=== PATIENT | male | born 1980 | race Two or more races ===

== ENCOUNTER 2016-09-04 20:47 | Emergency (ER) | payer OTHER ==
[~2016-09-04] VITALS: Ht 175.3 cm; Wt 86.2 kg
[~2016-09-04 20:47] MED LIST: IBUPROFEN600 MG ORAL; NKM; TRAMADOL HCL50 MG ORAL
[2016-09-04 21:16] VITALS: BP 126/80
[2016-09-04] MEDS ORDERED: Cyclobenzaprine 10mg Tab ORAL ONE (21:30)
[2016-09-04] MEDS ORDERED: Ketorolac 30mg Inj IM ONE (21:30)
[2016-09-04] MEDS ORDERED: IBUPROFEN600 MG ORAL (21:40)
[2016-09-04] MEDS ORDERED: CYCLOBENZAPRINE10 MG ORAL (21:40)
[2016-09-04 21:52] VITALS: BP 126/80
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
== END 2016-09-04 21:52 | disposition home or self-care (01) ==
LOC: EMR 21:40
DX: S16.1XXA Strain of muscle, fascia and tendon at neck level, initial encounter (principal); V43.52XA Car driver injured in collision with other type car in traffic accident, initial encounter; Y92.410 Unspecified street and highway as the place of occurrence of the external cause
CPT/HCPCS: 96372; 99284; J1885

== ENCOUNTER 2016-09-09 14:27 | Emergency (ER) | payer SELFPAY ==
[~2016-09-09] VITALS: Ht 175.3 cm; Wt 79.4 kg
[~2016-09-09 14:27] MED LIST changes: +CYCLOBENZAPRINE10 MG ORAL
[2016-09-09 15:09] VITALS: BP 132/77
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
[2016-09-09] MEDS ORDERED: IBUPROFEN600 MG ORAL (16:52)
[2016-09-09] MEDS ORDERED: NORCO 5-325 TA1 EACH ORAL (16:52)
--- NOTE | 2016-09-09 16:58 | Diagnostic Imaging Report ---
Indication: PAIN Technique: 3 views of the lumbar spine Comparison: None Findings:Bony alignment is normal. Vertebral body heights are preserved. There is mild narrowing of the L4-5 and L5-S1 discs. There is unfused anterior superior corner of the L5 vertebral body seen on the lateral view-normal anatomic variant. The pedicles are intact. Sacral arches are preserved. Sacroiliac joint spaces are preserved Impression:No acute process
[2016-09-09 17:35] VITALS: BP 127/73
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
== END 2016-09-09 17:35 | disposition home or self-care (01) ==
LOC: EMR 15:35
DX: S16.1XXA Strain of muscle, fascia and tendon at neck level, initial encounter (principal); S39.012A Strain of muscle, fascia and tendon of lower back, initial encounter; V43.52XA Car driver injured in collision with other type car in traffic accident, initial encounter; Y92.410 Unspecified street and highway as the place of occurrence of the external cause; M50.322 Other cervical disc degeneration at C5-C6 level; M48.02 Spinal stenosis, cervical region
CPT/HCPCS: 72020; 72125; 99284